=== PATIENT | female | born 1985 | race Hispanic/Latino ===

== ENCOUNTER → 2020-03-20 | Outpatient (CLI) | payer BC, OTHER ==
--- NOTE | 2020-03-23 11:13 | RAD ---
EXAM DESCRIPTION: Foot,Left 2 Views CLINICAL HISTORY: 34 years, Female, M79.672 COMPARISON: None TECHNIQUE: Frontal and lateral view of the left foot FINDINGS: Images of the left foot demonstrate no acute displaced fracture or dislocation. Changes of prior fifth metatarsal neck corrective osteotomy and screw fixation without hardware complication. Chronic posttraumatic remodeling involves the fourth proximal phalanx head. The joint spacing and osseous alignment is normal. No radiopaque foreign body. The soft tissues are unremarkable. IMPRESSION: 1. No acute osseous abnormality. Electronically signed by: Vinh Cline DO 03/23/2020 11:11 AM CDT
--- NOTE | 2020-03-23 11:15 | RAD ---
EXAM DESCRIPTION: Foot, right 2 Views CLINICAL HISTORY: 34 years, Female, M79.672. Pain. COMPARISON: None TECHNIQUE: Frontal and lateral views of the right foot FINDINGS: Images of the right foot demonstrate no acute displaced fracture or dislocation. Changes of prior fifth metatarsal neck corrective osteotomy and screw fixation without hardware complication. Chronic mild deformity involves the fourth proximal phalanx head. The joint spacing and osseous alignment is normal. No radiopaque foreign body. The soft tissues are unremarkable. IMPRESSION: 1. No acute osseous abnormality. Electronically signed by: Vinh Cline DO 03/23/2020 11:13 AM CDT
== END ==
LOC: LAB.O 15:41
PROVIDERS: ATTEND Obstetrics & Gynecology
DX: M79.671 Pain in right foot (principal); M79.672 Pain in left foot; E03.9 Hypothyroidism, unspecified